=== PATIENT | female | born 1970 | race Hispanic/Latino ===

== ENCOUNTER 2018-06-10 08:39 | Observation (INO) | payer SELFPAY ==
[2018-06-10] MEDS ORDERED: NA CHLORIDE 0.9% 0 ML ONE (09:14)
[2018-06-10 09:26] LABS: Protime INR 1.01
[2018-06-10 09:27] LABS: Absolute Lymphocytes (CBC) 2.6 K/uL (0.7-4.9); Absolute Monocytes 0.5 K/uL (0.1-1.3); Absolute Neutrophil 4.6 K/uL (1.8-8.0); Basophils % 0.4 % (0-1.3); Eosinophils % 1.6 % (0-4.4); Hematocrit 37.7 % (36.0-45.0); Lymphocytes % 33.2 % (15.3-44.8); MCH 29.2 pg (27.0-35.0); MCV 86.4 fL (80-100); MPV 10.5 fL (7.6-11.3); Monocytes % 6.8 % (3.3-12.3); RBC Red Blood Cell Count 4.37 M/uL (3.86-4.86)
[2018-06-10 09:42] LABS: ALT/SGPT 117 U/L (12-78); AST/SGOT 65 U/L (15-37); Albumin 3.6 g/dL (3.4-5.0); Alkaline Phosphatase 147 U/L (45-117); BUN Blood Urea Nitrogen 8 mg/dL (7-18); Bicarbonate 27 mmol/L (21-32); Bilirubin Direct 0.1 mg/dL (0-0.2); Bilirubin Total 0.3 mg/dL (0.2-1.0); Glucose Level 177 mg/dL (74-106); Lipase 199 U/L (73-393); NT PRO-BNP 25 pg/mL (<125); Potassium 3.6 mmol/L (3.5-5.1); Protein, Total 7.8 g/dL (6.4-8.2); Sodium Level 140 mmol/L (136-145); Troponin (Emerg Dept Use Only) < 0.02 ng/mL (0.0-0.045)
[2018-06-10] MEDS ORDERED: ONDANSETRON 4 MG/2 ML VIAL ONE ×2 (09:55→12:18)
[2018-06-10] MEDS ORDERED: MORPHINE 4 MG/ML SYR ONE (09:55)
--- NOTE | 2018-06-10 10:10 | ER ---
Nurse's Notes [facility] Department Name: Mel Dolan Age: 48 yrs Sex: Female : 1970 Arrival Date: 06/10/2018 Time: 08:41 Bed 16 Private MD: None, None Diagnosis: Other chest pain;Essential (primary) hypertension Presentation: 06/10 08:41 Presenting complaint: Patient states: Left-sided chest pain radiating to left arm, left aa5 scapular area, and left side of neck that began last night. Pt also reports SOB and nausea. Denies vomiting. 08:41 Transition of care: patient was not received from another setting of care. Onset of aa5 symptoms was June 2018. Risk Assessment: Do you want to hurt yourself or someone else? Patient reports no desire to harm self or others. Initial Sepsis Screen: Does the patient meet any 2 criteria? No. Patient's initial sepsis screen is negative. Does the patient have a suspected source of infection? No. Patient's initial sepsis screen is negative. Care prior to arrival: None. 08:41 Method Of Arrival: Wheelchair aa5 08:41 Acuity: AURELIANO 2 aa5 Historical: - Allergies: 08:43 PENICILLINS; aa5 08:43 Aspirin (Palpitations); aa5 - Home Meds: 08:43 None [Active]; aa5 - PMHx: 08:43 None; aa5 - PSHx: 08:43 Hernia repair; ; aa5 - Immunization history:: Flu vaccine is not up to date. - Social history:: Smoking status: Patient/guardian denies using tobacco. - Ebola Screening: : No symptoms or risks identified at this time. - Family history:: not pertinent. Screenin:00 Abuse screen: Denies threats or abuse. Nutritional screening: No deficits noted. aa5 Tuberculosis screening: No symptoms or risk factors identified. Fall Risk None identified. Assessment: 08:45 General: Appears uncomfortable, Behavior is calm, cooperative. Pain: Complains of pain aa5 in anterior aspect of left upper chest and mid-sternal area Pain radiates to left arm, left side of neck, and left scapular area Pain currently is 9 out of 10 on a pain scale. Quality of pain is described as pressure, Pain began 1 day ago. Is continuous, Aggravated by increased activity, repositioning. Neuro: Level of Consciousness is awake, alert, obeys commands, Oriented to person, place, time, situation. Cardiovascular: Heart tones S1 S2 present Rhythm is sinus rhythm. Respiratory: Reports shortness of breath Airway is patent Respiratory effort is even, unlabored, Respiratory pattern is regular, symmetrical, Breath sounds are clear bilaterally. Denies cough. GI: Abdomen is round non-distended, Bowel sounds present X 4 quads. Abd is soft and non tender X 4 quads. Reports nausea, Patient currently denies vomiting. : No signs and/or symptoms were reported regarding the genitourinary system. EENT: No signs and/or symptoms were reported regarding the EENT system. Derm: Skin is pink, warm \\T\\ dry. Musculoskeletal: Range of motion: intact in all extremities. 09:45 Reassessment: Patient and/or family updated on plan of care and expected duration. Pain aa5 level reassessed. Patient is alert, oriented x 3, equal unlabored respirations, skin warm/dry/pink. Patient states symptoms have not improved. Pt c/o pain. Asked pt if she needed pain medication at this time. Pt states "I am scared to take any morphine so I just want something not as strong as morphine". Dr. Alva was notified of pt's request. Pt offered Tylenol per Dr. Alva, pt states "I could have just taken Tylenol at home". Pt currently agrees to take a low dose of morphine.. 09:59 Reassessment: Patient and/or family updated on plan of care and expected duration. Pain aa5 level reassessed. Patient is alert, oriented x 3, equal unlabored respirations, skin warm/dry/pink. Patient states symptoms have not improved. Cardiovascular: Rhythm is sinus rhythm. 11:00 Reassessment: Patient and/or family updated on plan of care and expected duration. Pain aa5 level reassessed. Patient is alert, oriented x 3, equal unlabored respirations, skin warm/dry/pink. Patient states symptoms have not improved. Pain: Pain currently is 8 out of 10 on a pain scale. 11:00 Cardiovascular: Rhythm is sinus bradycardia. aa5 12:06 Reassessment: Patient and/or family updated on plan of care and expected duration. Pain aa5 level reassessed. Patient is alert, oriented x 3, equal unlabored respirations, skin warm/dry/pink. Patient states feeling better. Pt c/o nausea, Dr. Alva notified. Pt sitting up in bed. Pt's family remains at bedside. . Pain: Pain currently is 5 out of 10 on a pain scale. 13:30 Reassessment: Patient is alert, oriented x 3, equal unlabored respirations, skin aa5 warm/dry/pink. Vital Signs: 08:44 BP 161 / 106; Pulse 70; Resp 20 S; Temp 97.9(O); Pulse Ox 98% on R/A; Pain 9/10; aa5 09:20 BP 172 / 94; Pulse 80; Resp 20 S; Pulse Ox 100% ; aa5 10:06 BP 135 / 94; Pulse 66; Resp 16 S; Pulse Ox 98% on R/A; Pain 9/10; aa5 10:20 Weight 80.92 kg (M); aa5 11:00 BP 162 / 104; Pulse 56; Resp 14 S; Pulse Ox 100% on R/A; Pain 8/10; aa5 12:00 BP 152 / 106; Pulse 98; Resp 18; Pulse Ox 98% on R/A; mh5 13:20 BP 146 / 84; Pulse 78; Resp 17; Pulse Ox 98% on R/A; mh5 ED Course: 08:41 Patient arrived in ED. mr 08:42 None, None is Private Physician. mr 08:42 Arm band placed on Patient placed in an exam room, on a stretcher. aa5 08:42 Patient has correct armband on for positive identification. Placed in gown. Bed in low aa5 position. Call light in reach. Side rails up X2. hall monitor on. Pulse ox on. NIBP on. 08:45 Patient maintains SpO2 saturation greater than 95% on room air. aa5 08:53 Kenneth Alva MD is Attending Physician. rocio 08:56 Mariella Gray, SARAH is Primary Nurse. aa5 09:00 Triage completed. aa5 09:04 EKG done, by mortuary technician. reviewed by Kenneth Alva MD. tc 09:16 X-ray completed. Portable x-ray completed in exam room. Patient tolerated procedure ml well. 09:18 XRAY Chest (1 view) In Process Unspecified. EDMS 09:22 Initial lab(s) drawn, by me, sent to lab. Inserted saline lock: 20 gauge in left mh5 antecubital area, using aseptic technique. Blood collected. 10:09 Jaime North MD is Hospitalizing Provider. rocio 10:13 CT completed. Patient tolerated procedure well. Patient moved to CT via wheelchair. jg6 Patient moved back from CT. 10:15 No provider procedures requiring assistance completed. aa5 10:16 CT Aorta for Dissection In Process Unspecified. EDMS 13:30 Patient admitted, IV remains in place. aa5 Administered Medications: 09:04 CANCELLED (Physician Discretion): Aspirin Chewable Tablet 162 mg PO once aa5 09:25 Not Given (Patient Refused): NS 0.9% 1000 ml IV at 125 ml/hr continuous aa5 09:27 CANCELLED (Physician Discretion): TORadol 30 mg IVP once aa5 09:59 Drug: morphine 2 mg Route: IVP; Site: left antecubital; aa5 10:05 Follow up: Response: No adverse reaction aa5 09:59 Drug: Zofran 4 mg Route: IVP; Site: left antecubital; aa5 10:05 Follow up: Response: No adverse reaction aa5 10:30 Drug: Aspirin 162 mg Route: PO; aa5 11:00 Follow up: Response: No adverse reaction aa5 10:30 Drug: Lopressor (metoprolol TARTRATE) 50 mg Route: PO; aa5 11:00 Follow up: Response: No adverse reaction aa5 10:31 Drug: Lovenox 1 mg/kg Route: Sub-Q; Site: left lower abdomen; aa5 11:00 Follow up: Response: No adverse reaction aa5 10:31 Drug: Pepcid 20 mg Route: IVP; Site: left antecubital; aa5 10:36 Follow up: Response: No adverse reaction aa5 11:03 Drug: morphine 2 mg Route: IVP; Site: left antecubital; aa5 11:10 Follow up: Response: No adverse reaction aa5 12:07 Drug: Zofran 4 mg Route: IVP; Site: left antecubital; aa5 12:12 Follow up: Response: No adverse reaction aa5 Outcome: 10:09 Decision to Hospitalize by Provider. rocio 13:30 Admitted to Tele accompanied by tech, family with patient, via wheelchair, with chart, aa5 Report called to SARAH Graf 13:30 Condition: stable 13:30 Instructed on the need for admit, Demonstrated understanding of instructions. 13:40 Patient left the ED. aa5 Signatures: Dispatcher [employer] Kenneth Lares MD MD cha Rivera, Sosa mr Maico, Mariella Mccray RN RN aa5 Josiane Vasquez, supervisor fertilizer processing EKG Ttc Luis Eduardo, Kell Keisha Sahu6 Corrections: (The following items were deleted from the chart) 15:29 10:36 Response: No adverse reaction aa5 aa5
--- NOTE | 2018-06-10 10:10 | EDPHYS ---
Physician Documentation [facility] Name: Mel Dolan Age: 48 yrs Sex: Female : 1970 Arrival Date: 06/10/2018 Time: 08:41 Bed 16 Private MD: None, None ED Physician Kenneth Alva HPI: 06/10 10:01 This 48 yrs old Female presents to ER via Wheelchair with complaints of Chest rocio Pain. 10:01 The patient or guardian reports chest pain that is located primarily in the substernal rocio area. Onset: 2 day(s) ago. The pain radiates to the left arm, Associated signs and symptoms: The patient has no apparent associated signs or symptoms. The chest pain is described as a pressure, sharp. Severity of pain: At its worst the pain was mild in the emergency department the pain is unchanged. The patient has not experienced similar symptoms in the past. Historical: - Allergies: 08:43 PENICILLINS; aa5 08:43 Aspirin (Palpitations); aa5 - Home Meds: 08:43 None [Active]; aa5 - PMHx: 08:43 None; aa5 - PSHx: 08:43 Hernia repair; ; aa5 - Immunization history:: Flu vaccine is not up to date. - Social history:: Smoking status: Patient/guardian denies using tobacco. - Ebola Screening: : No symptoms or risks identified at this time. - Family history:: not pertinent. ROS: 10:01 Constitutional: Negative for fever, chills, and weight loss, Eyes: Negative for injury, orcio pain, redness, and discharge, ENT: Negative for injury, pain, and discharge, Neck: Negative for injury, pain, and swelling, Respiratory: Negative for shortness of breath, cough, wheezing, and pleuritic chest pain, Abdomen/GI: Negative for abdominal pain, nausea, vomiting, diarrhea, and constipation, Back: Negative for injury and pain, : Negative for injury, bleeding, discharge, and swelling, MS/Extremity: Negative for injury and deformity, Skin: Negative for injury, rash, and discoloration, Neuro: Negative for headache, weakness, numbness, tingling, and seizure, Psych: Negative for depression, anxiety, suicide ideation, homicidal ideation, and hallucinations, Allergy/Immunology: Negative for hives, rash, and allergies, Endocrine: Negative for neck swelling, polydipsia, polyuria, polyphagia, and marked weight changes, Hematologic/Lymphatic: Negative for swollen nodes, abnormal bleeding, and unusual bruising. 10:01 Cardiovascular: Positive for chest pain. Exam: 10:01 Constitutional: This is a well developed, well nourished patient who is awake, alert, rocio and in no acute distress. Head/Face: Normocephalic, atraumatic. Eyes: Pupils equal round and reactive to light, extra-ocular motions intact. Lids and lashes normal. Conjunctiva and sclera are non-icteric and not injected. Cornea within normal limits. Periorbital areas with no swelling, redness, or edema. ENT: Nares patent. No nasal discharge, no septal abnormalities noted. Tympanic membranes are normal and external auditory canals are clear. Oropharynx with no redness, swelling, or masses, exudates, or evidence of obstruction, uvula midline. Mucous membranes moist. Neck: Trachea midline, no thyromegaly or masses palpated, and no cervical lymphadenopathy. Supple, full range of motion without nuchal rigidity, or vertebral point tenderness. No Meningismus. Chest/axilla: Normal chest wall appearance and motion. Nontender with no deformity. No lesions are appreciated. Cardiovascular: Regular rate and rhythm with a normal S1 and S2. No gallops, murmurs, or rubs. Normal PMI, no JVD. No pulse deficits. Respiratory: Lungs have equal breath sounds bilaterally, clear to auscultation and percussion. No rales, rhonchi or wheezes noted. No increased work of breathing, no retractions or nasal flaring. Abdomen/GI: Soft, non-tender, with normal bowel sounds. No distension or tympany. No guarding or rebound. No evidence of tenderness throughout. Back: No spinal tenderness. No costovertebral tenderness. Full range of motion. Skin: Warm, dry with normal turgor. Normal color with no rashes, no lesions, and no evidence of cellulitis. MS/ Extremity: Pulses equal, no cyanosis. Neurovascular intact. Full, normal range of motion. Neuro: Awake and alert, GCS 15, oriented to person, place, time, and situation. Cranial nerves II-XII grossly intact. Motor strength 5/5 in all extremities. Sensory grossly intact. Cerebellar exam normal. Normal gait. Psych: Awake, alert, with orientation to person, place and time. Behavior, mood, and affect are within normal limits. 10:04 Musculoskeletal/extremity: DVT Exam: No signs of deep vein thrombosis. no pain, no rocio swelling, no tenderness, negative Homans' sign noted on exam, no appreciated bluish discoloration, no erythema, no increased warmth. Vital Signs: 08:44 BP 161 / 106; Pulse 70; Resp 20 S; Temp 97.9(O); Pulse Ox 98% on R/A; Pain 9/10; aa5 09:20 BP 172 / 94; Pulse 80; Resp 20 S; Pulse Ox 100% ; aa5 10:06 BP 135 / 94; Pulse 66; Resp 16 S; Pulse Ox 98% on R/A; Pain 9/10; aa5 10:20 Weight 80.92 kg (M); aa5 11:00 BP 162 / 104; Pulse 56; Resp 14 S; Pulse Ox 100% on R/A; Pain 8/10; aa5 12:00 BP 152 / 106; Pulse 98; Resp 18; Pulse Ox 98% on R/A; mh5 13:20 BP 146 / 84; Pulse 78; Resp 17; Pulse Ox 98% on R/A; mh5 MDM: 08:53 Patient medically screened. [facility] 10:03 Data reviewed: vital signs, nurses notes, lab test result(s), EKG, radiologic studies, [facility] CT scan, plain films. 06/10 08:55 Order name: Basic Metabolic Panel; Complete Time: 10:04 [facility] 06/10 08:55 Order name: CBC with Diff; Complete Time: 10:04 [facility] 06/10 08:55 Order name: LFT's; Complete Time: 10:04 [facility] 06/10 08:55 Order name: Magnesium; Complete Time: 10:04 [facility] 06/10 08:55 Order name: NT PRO-BNP; Complete Time: 10:04 [facility] 06/10 08:55 Order name: PT-INR; Complete Time: 10:04 [facility] 06/10 08:55 Order name: Troponin (emerg Dept Use Only); Complete Time: 10:04 [facility] 06/10 08:55 Order name: XRAY Chest (1 view); Complete Time: 12:21 [facility] 06/10 08:55 Order name: Lipase; Complete Time: 10:04 [facility] 06/10 09:27 Order name: D-Dimer; Complete Time: 10:04 [facility] 06/10 11:12 Order name: Urine Dipstick--Ancillary (enter results) 06/10 11:12 Order name: Urine --Ancillary (enter results) 06/10 11:25 Order name: Urine --Ancillary; Complete Time: 12:21 [facility] 06/10 11:25 Order name: Urine Dipstick-Ancillary; Complete Time: 12:21 [facility] 06/10 08:55 Order name: EKG; Complete Time: 08:56 [facility] 06/10 09:59 Order name: CT Aorta for Dissection; Complete Time: 12:21 [facility] 06/10 10:12 Order name: US Abdomen Limited [facility] 06/10 10:13 Order name: CONS Physician Consult [facility] 06/10 11:29 Order name: US; Complete Time: 12:21 [facility] 06/10 08:55 Order name: Cardiac monitoring; Complete Time: 08:58 [facility] 06/10 08:55 Order name: EKG - Nurse/Tech; Complete Time: 08:58 [facility] 06/10 08:55 Order name: IV Saline Lock; Complete Time: 10:09 [facility] 06/10 08:55 Order name: Labs collected and sent; Complete Time: 10:09 [facility] 06/10 08:55 Order name: O2 Per Protocol; Complete Time: 08:58 [facility] 06/10 08:55 Order name: O2 Sat Monitoring; Complete Time: 08:58 [facility] 06/10 08:55 Order name: Urine Dipstick-Ancillary (obtain specimen); Complete Time: 11:19 [facility] 06/10 12:25 Order name: Diet Regular; Complete Time: 12:26 em Administered Medications: 09:04 CANCELLED (Physician Discretion): Aspirin Chewable Tablet 162 mg PO once aa5 09:25 Not Given (Patient Refused): NS 0.9% 1000 ml IV at 125 ml/hr continuous aa5 09:27 CANCELLED (Physician Discretion): TORadol 30 mg IVP once aa5 09:59 Drug: morphine 2 mg Route: IVP; Site: left antecubital; aa5 10:05 Follow up: Response: No adverse reaction aa5 09:59 Drug: Zofran 4 mg Route: IVP; Site: left antecubital; aa5 10:05 Follow up: Response: No adverse reaction aa5 10:30 Drug: Aspirin 162 mg Route: PO; aa5 11:00 Follow up: Response: No adverse reaction aa5 10:30 Drug: Lopressor (metoprolol TARTRATE) 50 mg Route: PO; aa5 11:00 Follow up: Response: No adverse reaction aa5 10:31 Drug: Lovenox 1 mg/kg Route: Sub-Q; Site: left lower abdomen; aa5 11:00 Follow up: Response: No adverse reaction aa5 10:31 Drug: Pepcid 20 mg Route: IVP; Site: left antecubital; aa5 10:36 Follow up: Response: No adverse reaction aa5 11:03 Drug: morphine 2 mg Route: IVP; Site: left antecubital; aa5 11:10 Follow up: Response: No adverse reaction aa5 12:07 Drug: Zofran 4 mg Route: IVP; Site: left antecubital; aa5 12:12 Follow up: Response: No adverse reaction aa5 Disposition: 06/10/18 10:09 Hospitalization ordered by Jaime North for Observation. Preliminary diagnosis are Other chest pain, Essential (primary) hypertension. - Bed requested for Telemetry/MedSurg (observation). - Status is Observation. aa5 - Condition is Stable. - Problem is new. - Symptoms have improved. UTI on Admission? No Signatures: Dispatcher [employer] EDKenneth Lan MD MD cha Calderon, Audri RN RN aa5 Mary Keller Corrections: (The following items were deleted from the chart) 09:04 08:55 Aspirin Chewable Tablet 162 mg PO once ordered. rocio [facility] 09:27 09:26 TORadol 30 mg IVP once ordered. aaTatiana aa 12:04 10:09 Hospitalization Ordered by Jaime North MD for Observation. Preliminary diagnosis eb is Other chest pain; Essential (primary) hypertension. Bed requested for Telemetry/MedSurg (observation). Status is Observation. Condition is Stable. Problem is new. Symptoms have improved. UTI on Admission? No. rocio 12:05 12:04 06/10/2018 10:09 Hospitalization Ordered by Jaime North MD for Observation. eb Preliminary diagnosis is Other chest pain; Essential (primary) hypertension. Bed requested for Telemetry/MedSurg (observation). Status is Observation. Condition is Stable. Problem is new. Symptoms have improved. UTI on Admission? No. eb 13:40 12:05 06/10/2018 10:09 Hospitalization Ordered by Jaime North MD for Observation. aa5 Preliminary diagnosis is Other chest pain; Essential (primary) hypertension. Bed requested for Telemetry/MedSurg (observation). Status is Observation. Condition is Stable. Problem is new. Symptoms have improved. UTI on Admission? No. eb
--- NOTE | 2018-06-10 10:31 | RAD REPORT ---
EXAM DESCRIPTION: CT - Angio Aorta For Dissection - 06/10/2018 10:15 am CLINICAL HISTORY: Left-sided chest pain radiating to the left scapula and neck COMPARISON: Portable chest June 10 TECHNIQUE: Dynamically enhanced 3 mm thick images of the chest, abdomen, and upper pelvis were obtai elissa during administration of approximately 150mL Isovue 370 IV contrast. Sagittal and coronal reconst ruction images were generated using MIP and reviewed. Exam utilizes a protocol to evaluate entire cou rse of the aorta. All CT scans are performed using dose optimization technique as appropriate and may include automated exposure control or mA/KV adjustment according to patient size. FINDINGS: Aorta is normal in diameter with no dissection or other acute aortic findings. Reconstruct ion images show no significant findings. Pulmonary arteries are normal. No pericardial thickening or effusion. Heart size is upper normal. No mass or infiltrate in the lung parenchyma. No pleural thickening, pleural effusion or pneumothorax . No abnormal mediastinal or hilar mass or lymphadenopathy seen. No chest wall mass or abnormal axillar y lymphadenopathy. No rib abnormality seen. Scapula and imaged portions of the left shoulder joint sh ow no suspicious findings. No left subclavian artery abnormality seen. Celiac, SMA and renal arteries show no suspicious findings. Solid abdominal viscera and bowel show no focal findings. Liver does demonstrate pronounced diffuse fatty infiltration. No mass or abnormal l ymphadenopathy. No free air, free fluid or inflammatory stranding. No urinary bladder abnormality. U terus and ovaries show no suspicious findings. No acute bony finding seen. Patient has degenerative disc disease L4-5 and L5-S1. IMPRESSION: Negative CT scan of the aorta. No acute findings in the chest, abdomen or pelvis. Diffuse fatty infiltration of the liver.
[2018-06-10] MEDS ORDERED: ASPIRIN 81 MG CHEWABLE TABLET ONE (10:33)
[2018-06-10] MEDS ORDERED: METOPROLOL TAR 50 MG TAB ONE (10:34)
[2018-06-10] MEDS ORDERED: ENOXAPARIN 80 MG/0.8 ML SQ ONE (10:34)
--- NOTE | 2018-06-10 10:35 | RAD REPORT ---
EXAM DESCRIPTION: Rito Single View06/10/2018 9:19 am CLINICAL HISTORY: Chest pain COMPARISON: none FINDINGS: The lungs appear clear of acute infiltrate. The heart is normal size IMPRESSION: No acute abnormalities displayed
[2018-06-10] MEDS ORDERED: FAMOTIDINE 20 MG/2 ML VIAL IV ONE (10:37)
[2018-06-10 11:25] LABS: Urine Blood NEGATIVE (NEG); Urine Glucose NEGATIVE (NEG); Urine Protein NEGATIVE (NEG); Urine pH 5.5 (5.0-7.0)
--- NOTE | 2018-06-10 11:28 | RAD REPORT ---
EXAM DESCRIPTION: US - Abdomen Exam Limited - 06/10/2018 11:22 am CLINICAL HISTORY: Abdominal pain COMPARISON: None. FINDINGS: No mobile gallstones or sludge identifiable. 2 small less than 5 mm echogenic foci are pre sent adherent to the wall of the gallbladder. No posterior acoustic shadowing. These are favored to b e small polyps rather than nonshadowing, adherent gallstones. There is no wall thickening or perichol ecystic fluid. No common duct stone or biliary tree dilatation identified. IMPRESSION: Small gallbladder polyps are present. No gallstones or sludge confirmed. No biliary tree abnormality.
[2018-06-10 13:47] VITALS: BMI 32.1
[2018-06-10] MEDS ORDERED: ALBUTEROL 2.5 MG/3 ML NEB SOL NEB PRN (13:47)
[2018-06-10 13:55] VITALS: O2SAT 98
[2018-06-10] MEDS ORDERED: POTASSIUM CL SA 10 MEQ TAB PO ONE (14:08)
[2018-06-10] MEDS ORDERED: HYDRALAZINE HCL 20 MG/ML VIAL IV PRN (14:33)
[2018-06-10] MEDS: ONDANSETRON 4 MG/2 ML VIAL IV PRN ×2 (14:52→20:17)
[2018-06-10] MEDS ORDERED: NITROGLYCERIN 0.4 MG/TAB SL PRN (18:21)
[2018-06-10] MEDS ORDERED: MORPHINE 2 MG/ML SYR IV PRN (18:21)
--- NOTE | 2018-06-10 18:21 | P.HP ---
Certification for Inpatient Patient admitted to: Observation With expected LOS: <2 Midnights Practitioner: I am a practitioner with admitting privileges, knowledge of patient current condition, hospital course, and medical plan of care. Services: Services provided to patient in accordance with Admission requirements found in Title 42 Section 412.3 of the Code of Federal Regulations Patient History Date of Service: 06/10/18 Primary Care Provider: Dr. Weems Reason for admission: Chest pain History of Present Illness: This is a 40-year-old female with a past medical history here with complaints of chest pain and elevated blood pressure. She reports that substernal chest pain started yesterday, progressively worsening with the radiation to the back. This pain started when she was relaxing. Describes it as sharp/pressure-like pain. Associated with nausea and left arm numbness. No alleviating or exacerbating factors. The shortness of breath, dizziness, vision changes, speech changes, diaphoresis, abdominal pain or headache. Allergies aspirin Allergy (Verified 06/10/18 13:41) Shortness of breath Penicillins Allergy (Verified 06/10/18 13:41) Shortness of breath Home Medications: Omeprazole 10 mg PO DAILY #30 capsule. 06/11/18 - Past Medical/Surgical History Diabetic: No -: HTN -: ABDOMINAL HERNIA REPAIR -: C SECTION - Family History Father -: Heart disease, Diabetes Mother -: Hypertension - Social History Smoking Status: Never smoker Alcohol use: No CD- Drugs: No Caffeine use: Yes Place of Residence: Home Review of Systems General: Unremarkable Eyes: Unremarkable ENT: Unremarkable Respiratory: Unremarkable Cardiovascular: Chest Pain, As per HPI Gastrointestinal: Nausea, As per HPI Genitourinary: Unremarkable Musculoskeletal: Unremarkable Integumentary: Unremarkable Neurological: As per HPI Lymphatics: Unremarkable Physical Examination - Vital Signs Temperature: 97.3 F Blood Pressure: 139/82 Pulse: 66 Respirations: 16 Pulse Ox (%): 97 - Physical Exam General: Alert, Oriented x3, Mild distress HEENT: Atraumatic, PERRLA, Mucous membr. moist/pink, EOMI, Sclerae nonicteric Neck: Supple, 2+ carotid pulse no bruit, No LAD, Without JVD or thyroid abnormality Respiratory: Clear to auscultation bilaterally, Normal air movement Cardiovascular: Regular rate/rhythm, Normal S1 S2 Gastrointestinal: Normal bowel sounds, No tenderness Musculoskeletal: No tenderness Integumentary: No rashes Neurological: Normal speech, Normal strength at 5/5 x4 extr, Normal tone, Normal affect - Studies Laboratory Data (last 24 hrs) 06/10/18 09:10: PT 11.9, INR 1.01 06/10/18 09:10: WBC 7.9, Hgb 12.8, Hct 37.7, Plt Count 171 06/10/18 09:10: Sodium 140, Potassium 3.6, BUN 8, Creatinine 0.70, Glucose 177 H , Magnesium 2.0, Total Bilirubin 0.3, AST 65 H, ALT 117 H, Alkaline Phosphatase 147 H, Lipase 199 Assessment and Plan - Plan This is a 48-year-old female with: Chest pain, rule out ACS. Hypertensive urgency Choose admit patient to floor with tele. IV pain control with morphine. Nitro p.r.n.. Trend troponins x3. EKG unremarkable Chest x-ray without any acute abnormalities CT ruled out dissection. echo ordered, pending - Advance Directives Does patient have a Living Will: No Does patient have a Durable POA for Healthcare: No
--- NOTE | 2018-06-10 18:48 | EKG ---
Test Date: 2018-06-10 Test Time: 08:59:40 Payroll Professional: FREDDY MEASUREMENT RESULTS: Intervals: Rate: 65 W[place]: 156 QRSD: 84 QT: 410 QTc: 426 [place]: P: 61 [place]: 156 QRS: 16 T: 56 INTERPRETIVE STATEMENTS: Normal sinus rhythm Normal ECG No previous ECG available for comparison Electronically Signed On 06-10-18 18:44:58 HEART SURGEON by Rohit Haile
[2018-06-10] MEDS: ACETAMINOPHEN 500 MG TAB PO PRN (20:16)
[2018-06-11 06:12] LABS: Absolute Lymphocytes (CBC) 2.3 K/uL (0.7-4.9); Absolute Monocytes 0.6 K/uL (0.1-1.3); Absolute Neutrophil 4.7 K/uL (1.8-8.0); Basophils % 1.1 % (0-1.3); Eosinophils % 1.6 % (0-4.4); MCH 29.1 pg (27.0-35.0); MCV 86.4 fL (80-100); MPV 10.9 fL (7.6-11.3); Monocytes % 7.1 % (3.3-12.3)
[2018-06-11 06:29] LABS: Albumin 3.4 g/dL (3.4-5.0); Bilirubin Total 0.6 mg/dL (0.2-1.0); Phosphorus 3.1 mg/dL (2.5-4.9); Potassium 3.9 mmol/L (3.5-5.1); Protein, Total 7.1 g/dL (6.4-8.2)
[2018-06-11] MEDS ORDERED: POTASSIUM 25 MEQ EFFERV TAB PO ONE (07:30)
[2018-06-11] MEDS ORDERED: ENOXAPARIN 40 MG/0.4 ML SQ SCH (09:00)
[2018-06-11] MEDS: ACETAMINOPHEN 500 MG TAB PO PRN (11:07)
[2018-06-11 16:29] VITALS: BP 139/82; TEMP 97.3
--- NOTE | 2018-06-11 16:29 | P.SSS ---
Patient History Date of Service: 06/11/18 Primary Care Provider: Dr. Weems Reason for admission: Chest pain History of Present Illness: This is a 40-year-old female with a past medical history here with complaints of chest pain and elevated blood pressure. She reports that substernal chest pain started yesterday, progressively worsening with the radiation to the back. This pain started when she was relaxing. Describes it as sharp/pressure-like pain. Associated with nausea and left arm numbness. No alleviating or exacerbating factors. The shortness of breath, dizziness, vision changes, speech changes, diaphoresis, abdominal pain or headache. Allergies aspirin Allergy (Verified 06/10/18 13:41) Shortness of breath Penicillins Allergy (Verified 06/10/18 13:41) Shortness of breath Home Medications: RX: Omeprazole 10 mg PO DAILY #30 capsule. 06/11/18 - Past Medical/Surgical History Diabetic: No -: HTN -: ABDOMINAL HERNIA REPAIR -: C SECTION - Family History Father -: Heart disease, Diabetes Mother -: Hypertension - Social History Smoking Status: Never smoker Alcohol use: No CD- Drugs: No Caffeine use: Yes Place of Residence: Home Review of Systems As noted Physical Examination - Vital Signs Temperature: 97.3 F Blood Pressure: 139/82 Pulse: 66 Respirations: 16 Pulse Ox (%): 97 - Physical Exam General: Alert, In no apparent distress, Oriented x3 HEENT: Atraumatic, PERRLA, Mucous membr. moist/pink, EOMI, Sclerae nonicteric Neck: Supple, 2+ carotid pulse no bruit, No LAD, Without JVD or thyroid abnormality Respiratory: Clear to auscultation bilaterally, Normal air movement Cardiovascular: Regular rate/rhythm, Normal S1 S2 Gastrointestinal: Normal bowel sounds, No tenderness Musculoskeletal: No tenderness Integumentary: No rashes Neurological: Normal gait, Normal speech, Normal strength at 5/5 x4 extr, Normal tone, Normal affect Lymphatics: No axilla or inguinal lymphadenopathy Treatment Summary: Patient was admitted to the floor with tele. Patient was low risk factors. Troponins remained negative x3, EKG without any changes. Discuss with Dr. Haile, cardiology with outpatient follow For her blood pressure, she received 1 dose of hydralazine which controlled her blood pressure and it remained stable throughout the rest of the stay At the time of discharge, she was given instructions on returning to ER if chest pain worsened or if other symptoms develop. She was given information for outpatient cardiology. She was finally stable, and she was alert oriented x3. She was discharged with a prescription for omeprazole for GI cause of chest pain. She was also given a list of primary care physicians in this area for her to follow up. - Disposition Condition: GOOD Patient Discharge Instructions: Please pick a list of primary care physician from the list provided. Please follow up with that primary care physician in 1 week for a follow up. Please follow up with cardiology in 1-2 weeks. Information provided. In your abdominal ultrasound, it was noted you have a few small gallbladder polyps. Please follow up with your primary care physician for outpatient followup. Diet: Regular Activity: Ad sudeep Physician Review: Patient Assessed, Agree with Above Assessment and Plan Time Spent Managing Pts Care (In Minutes): 35
--- NOTE | 2018-06-12 19:17 | CON ---
Date of Consultation: 06/10/[address] North's service on 06/10/2018 because of chest pain and hypertension. The patient wa s seen on 06/10/2018. History Of Present Illness: Ms. Magdaleno Hoff is a 48-year-old [place] woman, has really no significant past medical history. There were some issues with possible anxiety, but she really ca me in with pain all over her body, legs, chest, abdomen, shoulders, back and neck, was found to have a glucose of 177. The rest of the blood work appeared to be normal except for an elevated liver func tion test, although she denied any fever or chills or abdominal pain in that liver area. There was n o nausea or vomiting. The patient appeared to be very anxious when I saw her, but no acute distress otherwise. Past Medical History: Negative. Allergies: INCLUDE ASPRIN AND PENICILLIN. Review of Systems: Negative. Social History: Negative for tobacco, alcohol, or drug use. Family History: Noncontributory. Medications: None at home. Physical Examination: Vital Signs: Stable. Afebrile. HEENT: Negative. Neck: Supple. No bruit. Chest: Clear to auscultation and percussion. Cardiac: Revealed a regular rhythm and rate without any murmurs, gallops, or rubs. Abdomen: Benign. Extremities: Revealed no clubbing, cyanosis, or edema. Diagnostic Data: As stated earlier. Impression And Plan: Atypical chest pain. Definitely not cardiac in nature. The patient has no ris k factors for heart disease. I think this may be a viral syndrome as all her pains were diffuse and nonspecific. She may need an abdominal ultrasound of her liver. I am comfortable with her going glynn e and following up with her primary care as an outpatient. GONZALO/MAVIS Voice ID: [id number] Report ID: [id number]
== END 2018-06-11 13:37 | disposition home or self-care (01) ==
LOC: ER 08:39 → ERHOLD 10:10 → 4TH 13:23
PROVIDERS: ADMIT Family Medicine; ATTEND Family Medicine
DX: R07.9 Chest pain, unspecified (principal); I10 Essential (primary) hypertension; K82.4 Cholesterolosis of gallbladder; Z88.6 Allergy status to analgesic agent; Z88.0 Allergy status to penicillin
CPT/HCPCS: 36415; 71045; 71275; 74175; 76705; 80048; 80053; 80061; 80076; 81003; 81025; 83690; 83735; 83880; 84100; 84484; 85025; 85379; 85610; 93005; 94760; 96372; 96374; 96375; 99285; G0378; J0360; J1650; J2405; J7030; Q9967

== ENCOUNTER 2019-01-02 07:19 | Day surgery (SDC) | payer SELFPAY ==
[2018-12-29 16:56] LABS: Absolute Lymphocytes (CBC) 2.6 K/uL (0.7-4.9); Absolute Monocytes 0.4 K/uL (0.1-1.3); Absolute Neutrophil 4.3 K/uL (1.8-8.0); Basophils % 0.4 % (0-1.3); Eosinophils % 1.3 % (0-4.4); Lymphocytes % 34.7 % (15.3-44.8); MPV 10.7 fL (7.6-11.3); Monocytes % 5.8 % (3.3-12.3); RBC Red Blood Cell Count 4.26 M/uL (3.86-4.86)
[2018-12-29 17:03] LABS: BUN Blood Urea Nitrogen 9 mg/dL (7-18); Bicarbonate 26 mmol/L (21-32); Glucose Level 75 mg/dL (74-106); Potassium 3.6 mmol/L (3.5-5.1); Sodium Level 142 mmol/L (136-145)
[2018-12-29 17:05] LABS: Albumin 3.6 g/dL (3.4-5.0); Bilirubin Direct 0.1 mg/dL (0-0.2); Bilirubin Total 0.4 mg/dL (0.2-1.0); Protein, Total 7.8 g/dL (6.4-8.2)
--- NOTE | 2018-12-29 17:06 | RAD REPORT ---
EXAM DESCRIPTION: RAD - Chest Pa And Lat (2 Views) - 12/29/2018 4:19 pm CLINICAL HISTORY: preop Chest pain. COMPARISON: Chest Single View dated 06/10/2018 FINDINGS: The lungs are clear. The heart is mildly enlarged in size. No displaced fractures. IMPRESSION: No acute or concerning finding suspected.
--- NOTE | 2018-12-30 08:41 | EKG ---
Test Date: 2018-12-29 Test Time: 16:07:44 Gate Services Supervisor: HEIDI MEASUREMENT RESULTS: Intervals: Rate: 65 TN: 150 QRSD: 86 QT: 436 QTc: 453 [place]: P: 62 TN: 150 QRS: 16 T: 47 INTERPRETIVE STATEMENTS: Normal sinus rhythm Normal ECG Compared to ECG 06/10/2018 08:59:40 No significant changes Electronically Signed On 12-30-18 08:39:55 CDT by Colton Pandey
[2019-01-02] MEDS ORDERED: Ringers Lactate 1,000 ML IV ONE ×2 (07:59→09:25)
[2019-01-02 08:07] LABS: Specific Gravity 1.025 (1.005-1.030)
[2019-01-02] MEDS ORDERED: PROPOFOL 200 MG/20 ML VIAL IV ONE (08:28)
[2019-01-02] MEDS ORDERED: MIDAZOLAM HCL 2 MG/2 ML INJ ONE (08:28)
[2019-01-02] MEDS ORDERED: FENTANYL CITR 100 MCG/2 ML ONE (08:28)
[2019-01-02] MEDS ORDERED: LIDOCAINE 2% MPF 5 ML VIAL ONE (08:28)
[2019-01-02] MEDS ORDERED: ROCURONIUM 50 MG/5 ML VIAL IV ONE (08:35)
[2019-01-02] MEDS ORDERED: CEFOXITIN/SWI 1gm 1 GM/10 ML SYR ONE (09:03)
[2019-01-02] MEDS ORDERED: KETOROLAC 30 MG/ML INJ ONE (09:08)
--- NOTE | 2019-01-02 09:28 | P.BOP ---
Preoperative diagnosis: acute cholecystitis, symptomatic cholelithiasis Postoperative diagnosis: same plus intrabdominal adhesions Primary procedure: 1. Laparoscopic cholecystectomy Secondary procedure: 2. Laparoscopic lysis of adhesions Resident Services Director: RICHARD LAWRENCE (MARINE INSULATOR) Estimated blood loss: <5cc Specimen: gb Findings: as above Anesthesia: General Complications: None Transferred to: Recovery Room Condition: Good
[2019-01-02] MEDS ORDERED: DEXAMETHASONE 4 MG/ML VIAL ONE (09:29)
[2019-01-02] MEDS ORDERED: GLYCOPYRROLATE 0.2 MG/ML SYR ONE (09:29)
[2019-01-02] MEDS ORDERED: ONDANSETRON 4 MG/2 ML VIAL ONE (09:29)
[2019-01-02] MEDS ORDERED: NEOSTIGMINE 1 MG/ML -10 ML VIAL ONE (09:30)
[2019-01-02] MEDS ORDERED: PROMETHAZINE 25 MG/ML VIAL ONE (10:12)
[2019-01-02] MEDS ORDERED: HYDROMORPHONE HCL 1 MG/ML INJ ONE (10:12)
[2019-01-02 10:24] VITALS: TEMP 97.5
[2019-01-02 12:17] VITALS: BP 138/83; O2SAT 97
--- NOTE | 2019-01-02 21:27 | OP ---
Date of Procedure: 01/02/2019 Surgeon: Kody Hoff MD Trust Manager Assistant: DOLORES Genao. Preoperative Diagnoses: Acute cholecystitis, symptomatic cholelithiasis. Postoperative Diagnoses: Acute cholecystitis, symptomatic cholelithiasis, intraabdominal adhesions. Procedure: Laparoscopic cholecystectomy laparoscopic lysis of adhesions. Estimated Blood Loss: Less than 5 cc. Specimen: Gallbladder. Anesthesia: General plus local. Indications: This is a case of a 48-year-old patient with right upper quadrant tenderness diagnosed with symptomatic cholelithiasis, acute cholecystitis. Laparoscopic possible open cholecystectomy, al l options were fully explained to the patient, which include but are not limited to infection, bleedi ng, damage to adjacent structures, anesthesia complication, choledocholithiasis, bile leak, pancreati tis, MT, and even . She also understands this may not relieve the symptoms. She might need mor e than one surgical intervention. She understood, signed a consent. Description Of Procedure: The patient was brought to the operating room, placed in supine position. Anesthesia was done without complication. Abdominal area was prepped and draped in usual sterile fa shion. Marcaine 0.5% was injected for local anesthetic, followed by sharp incision of the skin in e infraumbilical region. Incision was carried down to fascia, which was opened under direct vision. Peritoneum was encountered, opened under direct vision. Vicryl #1 placed inside the fascia. Wilmer trocar was carefully introduced. No bleeding was obtained. On the right upper quadrant, we pay att ention to it. We noticed some adhesions in the right upper quadrant. The patient has a prior surgic al interventions. In order for me to finish this when I have to get those adhesions out, those were holding the liver also hostage to the point that we cannot bring the gallbladder out so using Endo Sh ears connected to Bovie cauterizer. We proceeded to do this but before we place 5 mm trocars 3 of in the right upper quadrant under direct visualization. Lysis of adhesions were done, this allowe d me then to check for immobilization of the gallbladder, now we could mobilize it. The area of adhe sions looks intact with no bleeding. I proceeded to put the grasper in the fundus of the gallbladder , another grasper in the infundibulum, retracted the gallbladder in the inferolateral fashion exposin g the triangle of clot obtaining critical view of safety. The cystic duct and cystic artery were ish hermilo isolated free circumferentially and a connection between those and the gallbladder were clearly identified. I proceeded to ligate those by using at least 3 clips proximal, 1 clip distal, ligation in middle. Same was done with the cystic artery. No bile leak. No bleeding. The gallbladder was r emoved from liver using Bovie cauterizer and removed from abdominal cavity using an EndoCatch through the umbilical incision. The area was inspected once again. Clips were intact. No bile leak. No b leeding. Area of the lysis of adhesions with no bleeding. At that moment, I proceeded to remove the all trocars under direct vision. Deflated the pneumoperitoneum. Closed the fascia with #1 Vicryl. Irrigated subcu incision, closed that with 3-0 chromic and skin in a subcuticular fashion with 3-0 c hromic and a Steri-Strip on top. Sponge count and instrument counts were correct. The patient alexander ated the procedure well. The patient was sent to recovery in stable condition. DISCHARGE SUMMARY Diagnoses: Acute cholecystitis, symptomatic cholelithiasis, intraabdominal adhesions. Right upper q uadrant pain. Procedure: Laparoscopic cholecystectomy, laparoscopic lysis of adhesions. Disposition: Home. Activity: As tolerated. No heavy lifting. Followup: Follow up in my office in 1 week. Call for appointment [phone]. Keep the area dry for 4 8 hours, then may shower. Keep Steri-Strips intact. For medication include Bactrim DS p.o. b.i.d., and Tylenol No. 3 q.4 hours p.r. n. pain. CHAYA/MAVIS Voice ID: [id number] Report ID: [id number]
== END 2019-01-02 12:15 | disposition home or self-care (01) ==
LOC: OR 07:19
PROVIDERS: ATTEND Surgery
PROC: 0DNW4ZZ Release Peritoneum, Percutaneous Endoscopic Approach (ICD-10-PCS; 2019-01-02)
PROC: 0FT44ZZ Resection of Gallbladder, Percutaneous Endoscopic Approach (ICD-10-PCS; principal; 2019-01-02 08:30)
DX: K80.12 Calculus of gallbladder with acute and chronic cholecystitis without obstruction (principal); K66.0 Peritoneal adhesions (postprocedural) (postinfection); K58.9 Irritable bowel syndrome, unspecified; Z88.8 Allergy status to other drugs, medicaments and biological substances
CPT/HCPCS: 36415; 71046; 80048; 80076; 81025; 82150; 83690; 85025; 88304; 93005; J1170; J2250; J2405; J2550; J2704; J2710; J3010